=== PATIENT | male | born 1960 | race Hispanic/Latino ===

== ENCOUNTER 2016-05-06 06:36 | Day surgery (SDC) | payer BC ==
[2016-04-28 17:28] VITALS: BMI 29.2
[2016-05-06 07:07] LABS: ADD MANUAL DIFF? NO
[2016-05-06 07:22] LABS: BASO # 0.02 K/mm3 (0.0-2.0); BASO % 0.4 % (0.0-3.0); BLOOD UREA NITROGEN 13 mg/dL (7-21); CALCIUM 9.4 mg/dL (8.4-10.5); CARBON DIOXIDE 31 mmol/L (21-33); CHLORIDE 101 mmol/L (98-107); EOS # 0.1 (0.0-0.7); EOS % 1.5 % (1.5-5.0); GFR AFRICAN-AMERICAN > 60; GLUCOSE,RANDOM 91 mg/dL (70-110); GRAN # 3.25 (1.4-6.5); GRAN % 60.4 % (50.0-68.0); HEMATOCRIT 43.3 % (42.0-52.0); LYMPH # 1.7 (1.2-3.4); LYMPH % 31.2 % (22.0-35.0); MEAN CELL VOLUME 93.5 fL (80.0-105.0); MEAN CORPUSCULAR HEMOGLOBIN 32.4 pg (25.0-35.0); MEAN CORPUSCULAR HGB CONC 34.6 g/dl (31.0-37.0); MEAN PLATELET VOLUME 10.9 fl (7.0-11.0); MONO # 0.4 (0.1-0.6); MONO % 6.5 % (1.0-6.0); PLATELET COUNT 173 10^3/uL (120.0-450.0); POTASSIUM 4.5 mmol/L (3.6-5.0); RED CELL DISTRIBUTION WIDTH 12.8 % (11.5-14.5); SODIUM 142 mmol/L (132-148); WHITE BLOOD COUNT 5.4 10^3/ul (4.5-11.0)
[2016-05-06 07:24] LABS: INR 1.06 (0.93-1.08); PARTIAL THROMBOPLASTIN TIME 27.3 Seconds (23.7-30.8)
[2016-05-06] MEDS ORDERED: Lidocaine 2% Inj (20ml) ONE (08:11)
[2016-05-06] MEDS ORDERED: Midazolam 2 MG/2 ML VIAL ONE ×2 (08:11→08:30)
[2016-05-06] MEDS ORDERED: Iodixanol 320 MG/ML 200 ML BOTTLE IV ONE (08:13)
[2016-05-06] MEDS ORDERED: Iohexol 350mgl/ml 50 ML ONE (08:13)
[2016-05-06] MEDS ORDERED: Nitroglycerin 50mg in D5W 0 ML IV ONE (08:13)
[2016-05-06] MEDS ORDERED: Iodixanol 320 MG/ML 100 ML BOTTLE IV ONE (08:13)
[2016-05-06] MEDS ORDERED: Sodium Chloride 0.9% 1,000 ML IV SCH (09:15)
[2016-05-06 10:01] VITALS: TEMP 97
--- NOTE | 2016-05-06 10:29 | CARDCATH ---
PROCEDURE DATE: 05/06/2016 HISTORY: The patient is a 56-year-old male with a history of anterior wall myocardial infarction in the past who presents with chest pain as well as an abnormal stress test. Because of this, cardiac c atheterization is recommended. PROCEDURE: Left heart catheterization with coronary angiography and left ventriculogram. The right femoral artery was cannulated with a 6-Tamazight sheath. There were no complications. The findings on catheterization revealed a left ventricle that was minimally hypokinetic. Estimated ejection fraction is 50%. His coronary anatomy revealed a right dominant circulation. The RCA revealed diffuse atherosclerosis with a patent stent in the posterolateral branch, but was fr ee of significant disease. His left main artery was unremarkable. The LAD revealed diffuse atherosclerosis throughout its course. The proximal LAD revealed a patent stent. The mid LAD revealed a patent stent. The mid to distal portion of the LAD was diffusely diseased with multiple 50-60% lesions throughout i ts course. The diagonal vessel was unremarkable. The circumflex artery and obtuse marginal branches were free of significant disease. Manual compression was used to close the femoral artery site. The patient tolerated the procedure well. In summary, the procedure revealed patent stents in the proximal LAD and mid LAD as well as the poste rolateral branch of the RCA. There was diffuse atherosclerosis in the mid to distal LAD with multiple 50% lesions throughout its c ourse. LV function was minimally hypokinetic with an EF of 50%. Given these findings, the patient's cardiac status is doing well since his multivessel PTCA and his a cute anterior wall myocardial infarction. The patient's cardiac risk reduction program is intact and the patient is doing well. I have discussed this with the patient in detail. He will continue his medications at home. Aguilar Manjarrez MD cc: [phone] TT: 05/06/2016 10:28:53 an
[2016-05-06 12:16] VITALS: O2SAT 100
[2016-05-06 12:18] VITALS: RESP 18
[2016-05-06 13:10] VITALS: BP 128/74; PULSE 56
--- NOTE | 2016-05-06 20:00 | CARD ---
APPROVED REPORT EKG Measurement Heart [id number] [id number] <Conclusion> Normal sinus rhythm Normal ECG
== END 2016-05-06 15:10 | disposition home or self-care (01) ==
LOC: CATH 06:36
PROVIDERS: ATTEND Internal Medicine Cardiovascular Disease
DX: I25.10 Atherosclerotic heart disease of native coronary artery without angina pectoris (principal); I25.2 Old myocardial infarction; R94.39 Abnormal result of other cardiovascular function study
CPT/HCPCS: 36415; 80048; 85025; 85610; 85730; 86850; 86900; 93005; 93458; 99152; C1769; C2629; J1644; J2250; J3010; J7040 ×2; Q9967

== ENCOUNTER 2017-01-23 07:06 | Emergency (ER) | payer BC ==
[2017-01-23 07:17] VITALS: BMI 28.3
[2017-01-23 07:21] VITALS: RESP 18; TEMP 98.7
[2017-01-23] MEDS ORDERED: Silver Nitrate Topical - Stick TOP ONE (07:37)
--- NOTE | 2017-01-23 07:43 | ED PDOC ---
Arrival/HPI - General Chief Complaint: Abnormal Skin Integrity Time Seen by Provider: 01/23/17 07:17 Historian: Patient - History of Present Illness Narrative History of Present Illness (Text): 01/23/17 07:25 57 year old male, whose past medical history includes CAD with three stents ( maintained on plavix), who presents complaining of a cut on the left foot that occurred last night. Patient reports he was clipping his toe nails when he clipped improperly on the fourth toe lateral side. He states the bleeding stopped last night, but began to start up when he was sleeping. Patient denies any fever, chills, chest pain, shortness of breath, nausea, vomiting, diarrhea, urinary symptoms, back pain, neck pain, headache, dizziness, or any other complaints/injuries. PMD: Dr. Lynne Symptom Onset: Gradual Symptom Course: Unchanged Activities at Onset: Light Context: Home Past Medical History - Provider Review Nursing Documentation Reviewed: Yes - Infectious Disease Hx of Infectious Diseases: None - Tetanus Immunization Tetanus Immunization: Unknown - Past Medical History Past Medical History: No Previous - Cardiac Other/Comment: 3 cardiac stent - Hematological/Oncological Hx Blood Transfusions: No - Musculoskeletal/Rheumatological Hx Musculoskeletal Disorders: No - Psychiatric Hx Substance Use: No - Past Surgical History Past Surgical History: No Previous - Surgical History Other/Comment: pt fell during his childhood days and fracture the bridge of his nose and eventually had surgery to remove the bump. Cardiac Stent x 3 - Anesthesia Hx Anesthesia Reactions: No Hx Malignant Hyperthermia: No - Suicidal Assessment Feels Threatened In Home Enviroment: No Family/Social History - Physician Review Nursing Documentation Reviewed: Yes Family/Social History: No Known Family HX Smoking Status: Never Smoked Hx Alcohol Use: No Hx Substance Use: No Hx Substance Use Treatment: No Allergies/Home Meds Allergies/Adverse Reactions: Allergies No Known Allergies Allergy (Verified 04/28/16 17:28) Home Medications: Home Meds Medication Instructions Recorded Confirmed Atorvastatin Calcium [Lipitor] 20 mg PO DAILY 05/04/16 05/06/16 Review of Systems - Physician Review All systems were reviewed & negative as marked: Yes - Review of Systems Constitutional: absent: Fevers, Other (Chills) Respiratory: absent: SOB Cardiovascular: absent: Chest Pain Gastrointestinal: absent: Diarrhea, Nausea, Vomiting Musculoskeletal: absent: Back Pain, Neck Pain Skin: Other (cut on the left fourth toe) Neurological: absent: Headache, Dizziness Physical Exam Vital Signs Reviewed: Yes Vital Signs Temp Pulse Resp BP Pulse Ox 01/23/17 07:07 98.7 F 49 L 18 145/82 99 Temperature: Afebrile Pulse: Bradycardic Respiratory Rate: Normal Appearance: Positive for: Well-Appearing, Non-Toxic, Comfortable Pain Distress: None Mental Status: Positive for: Alert and Oriented X 3 - Systems Exam Head: Present: Atraumatic, Normocephalic Pupils: Present: PERRL Extroacular Muscles: Present: EOMI Conjunctiva: Present: Normal Mouth: Present: Moist Mucous Membranes Neck: Present: Normal Range of Motion Respiratory/Chest: Present: Clear to Auscultation, Good Air Exchange. No: Respiratory Distress, Accessory Muscle Use Cardiovascular: Present: Regular Rate and Rhythm, Normal S1, S2. No: Murmurs Abdomen: Present: Normal Bowel Sounds. No: Tenderness, Distention, Peritoneal Signs Back: Present: Normal Inspection Upper Extremity: Present: Normal Inspection. No: Cyanosis, Edema Lower Extremity: Present: Normal Inspection, Other ((+) Bleeding on the left lateral side toe nail of the fouth toe. (-) Pus (-) no warmth ). No: Edema, Swelling, Erythema Neurological: Present: GCS=15, CN II-XII Intact, Speech Normal Skin: Present: Warm, Dry, Normal Color. No: Rashes Psychiatric: Present: Alert, Oriented x 3, Normal Insight, Normal Concentration Medical Decision Making ED Course and Treatment: 01/23/17 07:25 Impression: 57 year old male presents complaining of bleeding from a clip on the left fourth toe laterally. Plan: -- Silver Nitrate Tropical Stick -- Reassess and disposition Prior Visits: Notes and results from previous visits were reviewed. Patient was last seen in the emergency department on 05/01/16 persents complaining of his heart racing. Patient was discharged. Progress Notes: 01/23/17 07:50 PROCEDURE: WOUND CARE Performed by [facility] Di[facility] Dr. Flores Consent: Informed consent, after discussion of the risks, benefits, and alternatives to the procedure was obtained. Timeout: A timeout to verify the correct patient, procedure, and site was performed. Indication: Bleeding Procedure Site: Third and fourth digit left foot Length: 2mm Preparation: Topical silveral Nitrate was placed. The wound was cleaned with NS and Betadyne. The area was prepped and draped in the usual sterile fashion. Procedure: The site was dressed with clean, dry, sterile dressing. Post-procedure: Good closure and hemostasis. The patient tolerated the procedure well and there were no complications. CSM remains intact. 01/23/17 08:50 Patient wound reevaluated and there is no bleeding. Patient has a PMD he will f/ u with and I recommended Dr. Dow for Podiatry follow up. He was advised to make sure to follow up with podiatry and PMD. He was advised not to wet wound for at least 48 hours and return to the ED if symptoms worsen or any other concern. - Medication Orders Current Medication Orders: Discontinued Medications Silver Nitrate (Silver Nitrate Topical Stick) 1 swa TOP ONCE ONE Stop: 01/23/17 07:38 Last Admin: 01/23/17 08:47 Dose: 1 swa Tetanus/Reduced Diphtheria/Acell Pertussis (Boostrix Vaccine Inj) 0.5 ml IM .ONCE ONE Stop: 01/23/17 08:01 Last Admin: 01/23/17 08:46 Dose: 0.5 ml MAR Immunization Data Document 01/23/17 08:46 SRE (Rec: 01/23/17 08:46 SRE [id number]) Immunization Data Vaccine Information Sheet Given No Immunization Registry Document 01/23/17 08:46 SRE (Rec: 01/23/17 08:46 SRE [id number]) Immunization Registry Consent Date 01/23/17 - Scribe Statement The provider has reviewed the documentation as recorded by the Tayler aGnn Provider Scribe Attestation: All medical record entries made by the Tayler were at my direction and personally dictated by me. I have reviewed the chart and agree that the record accurately reflects my personal performance of the history, physical exam, medical decision making, and the department course for this patient. I have also personally directed, reviewed, and agree with the discharge instructions and disposition. Disposition/Present on Arrival - Present on Arrival Any Indicators Present on Arrival: No History of DVT/PE: No History of Uncontrolled Diabetes: No Urinary Catheter: No History of Decub. Ulcer: No - Disposition Have Diagnosis and Disposition been Completed?: Yes Diagnosis: Toe injury Disposition: HOME/ ROUTINE Disposition Time: 08:52 Patient Plan: Observation Patient Problems: Current Active Problems Problem Status Onset Toe injury Acute Condition: IMPROVED Discharge Instructions (ExitCare): Nita (ED) Additional Instructions: Mr Tse, thank you for letting us take care of you today. Your provider was Dr. Shay. You were treated for Toe Injury. The emergency medical care you received today was directed at your acute symptoms. If you were prescribed any medication, please fill it and take as directed. It may take several days for your symptoms to resolve. Return to the Emergency Department if your symptoms worsen, do not improve, or if you have any other problems. Please contact your doctor or call one of the physicians/clinics you have been referred to that are listed on the Patient Visit Information form that is included in your discharge packet. Bring any paperwork you were given at discharge with you along with any medications you are taking to your follow up visit. Our treatment cannot replace ongoing medical care by a primary care provider (PCP) outside of the emergency department. Thank you for allowing the [facility] team to be part of your care today. If you had an X-Ray or CT scan: A Radiologist will review the ED reading if any change in treatment is needed we will contact you. If you had a blood, urine, or wound culture: It will take several days for the results, if any change in treatment is needed we will contact you. If you had an STI test: It will take 48 hours for the results. Please call after 1 week if you have not heard back. Referrals: Jose A Rodrigues MD [Primary Care Provider] - Follow up with primary Anjelica Dow DPM [Staff Provider] - Follow up with primary Forms: [employer] (Togolese), WORK NOTE
[2017-01-23] MEDS ORDERED: TDAP Vaccine 0.5 mL Syr IM ONE (08:00)
[2017-01-23 08:58] VITALS: BP 131/74; PULSE 43; O2SAT 96
== END 2017-01-23 09:01 | disposition home or self-care (01) ==
LOC: ED 07:06
DX: S99.922A Unspecified injury of left foot, initial encounter (principal); W45.8XXA Other foreign body or object entering through skin, initial encounter; Y93.E8 Activity, other personal hygiene; Y92.009 Unspecified place in unspecified non-institutional (private) residence as the place of occurrence of the external cause; Z23 Encounter for immunization

== ENCOUNTER 2017-05-20 10:44 | Emergency (ER) | payer BC ==
[2017-05-20 11:00] VITALS: TEMP 98.7
[2017-05-20 11:05] VITALS: BMI 28.1
--- NOTE | 2017-05-20 11:24 | ED PDOC ---
Arrival/HPI - General Chief Complaint: Shortness Of Breath Time Seen by Provider: 05/20/17 11:06 Historian: Patient - History of Present Illness Narrative History of Present Illness (Text): 05/20/17 11:10 A 57 year old male, whose past medical history includes 3 cardiac stents placed by Dr. Manjarrez, presents to the emergency department complaining of shortness of breath. Patient reports today after exercising at the gym, patient was walking around the gym and began experiencing shortness of breath. Patient denies any fever, chills, cough, chest pain, bilateral leg swelling/pain/cramps, or any other complaints at this time. Denies any recent travel. PMD: Dr. Rodrigues Mba Internship: Dr. Manjarrez Past Medical History - Provider Review Nursing Documentation Reviewed: Yes - Infectious Disease Hx of Infectious Diseases: None - Tetanus Immunization Tetanus Immunization: Unknown - Past Medical History Past Medical History: No Previous - Cardiac Hx Cardiac Disorders: Yes Hx VT: Yes Hx Hypertension: Yes Other/Comment: 3 cardiac stent - Hematological/Oncological Hx Blood Transfusions: No - Musculoskeletal/Rheumatological Hx Musculoskeletal Disorders: No - Psychiatric Hx Emotional Abuse: No Hx Physical Abuse: No Hx Substance Use: No - Past Surgical History Past Surgical History: No Previous - Surgical History Hx Coronary Stent: Yes (x3) Other/Comment: pt fell during his childhood days and fracture the bridge of his nose and eventually had surgery to remove the bump. Cardiac Stent x 3 - Anesthesia Hx Anesthesia: Yes Hx Anesthesia Reactions: No Hx Malignant Hyperthermia: No - Suicidal Assessment Feels Threatened In Home Enviroment: No Family/Social History - Physician Review Nursing Documentation Reviewed: Yes Family/Social History: No Known Family HX Smoking Status: Never Smoked Hx Alcohol Use: No Hx Substance Use: No Hx Substance Use Treatment: No Allergies/Home Meds Allergies/Adverse Reactions: Allergies No Known Allergies Allergy (Verified 05/20/17 11:10) Home Medications: Home Meds Medication Instructions Recorded Confirmed Atorvastatin Calcium [Lipitor] 20 mg PO DAILY 05/04/16 05/20/17 Review of Systems - Physician Review All systems were reviewed & negative as marked: Yes - Review of Systems Constitutional: absent: Fevers, Night Sweats Respiratory: SOB. absent: Cough Cardiovascular: absent: Chest Pain, Palpitations Musculoskeletal: absent: Other (no (bilateral) leg swelling/pain/cramps) Physical Exam Vital Signs Reviewed: Yes Vital Signs Temp Pulse Resp BP Pulse Ox 05/20/17 13:44 52 L 16 117/70 97 05/20/17 13:11 57 L 18 99/55 L 98 05/20/17 11:04 18 05/20/17 10:54 98.7 F 48 L 12 133/71 99 Temperature: Afebrile Blood Pressure: Normal Pulse: Regular Respiratory Rate: Normal Appearance: Positive for: Well-Appearing Pain Distress: None Mental Status: Positive for: Alert and Oriented X 3 - Systems Exam Head: Present: Atraumatic, Normocephalic Pupils: Present: PERRL Extroacular Muscles: Present: EOMI Conjunctiva: Present: Normal Mouth: Present: Moist Mucous Membranes Neck: Present: Normal Range of Motion Respiratory/Chest: Present: Clear to Auscultation, Good Air Exchange. No: Respiratory Distress, Accessory Muscle Use Cardiovascular: Present: Regular Rate and Rhythm, Normal S1, S2. No: Murmurs Abdomen: No: Tenderness, Distention, Peritoneal Signs Back: Present: Normal Inspection Upper Extremity: Present: Normal Inspection. No: Cyanosis, Edema Lower Extremity: Present: Normal Inspection. No: Edema Neurological: Present: GCS=15, CN II-XII Intact, Speech Normal Skin: Present: Warm, Dry, Normal Color. No: Rashes Psychiatric: Present: Alert, Oriented x 3, Normal Insight, Normal Concentration Medical Decision Making ED Course and Treatment: 05/20/17 11:15 Impression: 57 year old male with shortness of breath. No acute findings on physical examination; lungs clear. Differential Diagnosis included but are not limited to: ACS vs. Exhaustion from exercising. Plan: -- EKG -- Chest X-ray -- Labs -- Venous Blood Gas -- Reassess and disposition Progress Notes: EKG: Ordered, reviewed, and independently interpreted the EKG. Rate : 56 BPM Rhythm : Sinus bradycardia. Interpretation : No ST-segment elevations or depressions, no T-wave inversions, normal intervals. Comparison : No change EKG from comparison on 05/06/2016. 05/20/2017 11:40 Chest X-ray IMPRESSION: No active disease. Dictator: Randy Pan MD 05/20/17 13:50 Patient did not have shortness of breathe, chest pain or back pain throughput his ED stay. Patient and were given results of the labs, EKG, and CXR. They were advised to make sure to follow up with [facility] and Dr. Manjarrez in 1-2days. They were advised to return to the ED if symptoms persist, worsen or any other concern. - Lab Interpretations Lab Results: 05/20/17 12:10 05/20/17 12:10 Lab Results 05/20/17 12:10: Sodium 143, Chloride 102, Potassium 4.9, Carbon Dioxide 31, Anion Gap 15, BUN 16, Creatinine 0.9, Est GFR ( Amer) > 60, Est GFR (Non- Af Amer) > 60, Random Glucose 90, Calcium 10.2, Lactate Dehydrogenase 524, Total Creatine Kinase 201, Troponin I < 0.01, NT-Pro-B Natriuret Pep 97.3 05/20/17 12:10: pO2 34, VBG pH 7.38, VBG pCO2 57.0, VBG HCO3 33.7 H, VBG Total CO2 35.4 H, VBG O2 Sat (Calc) 71.8 H, VBG Base Excess 6.8 H, VBG Potassium 4.9, Sodium 138.0, Chloride 104.0, Glucose 88, Lactate 0.8, FiO2 21.0, Venous Blood Potassium 4.9 05/20/17 12:10: WBC 7.0 D, RBC 4.46, Hgb 14.4, Hct 42.2, MCV 94.6, MCH 32.3, MCHC 34.1, RDW 13.3, Plt Count 179, MPV 10.5, Gran % 72.7 H, Lymph % (Auto) 18.9 L, Davie % (Auto) 5.9, Eos % (Auto) 2.1, Baso % (Auto) 0.4, Gran # 5.08, Lymph # (Auto) 1.3, Davie # (Auto) 0.4, Eos # (Auto) 0.2, Baso # (Auto) 0.03 I have reviewed the lab results: Yes - RAD Interpretation Radiology Orders: 05/20/17 11:22 CHEST PORTABLE [RAD] Stat - Scribe Statement The provider has reviewed the documentation as recorded by the Divyaibsegundo Gutierrez Provider Scribe Attestation: All medical record entries made by the Scribe were at my direction and personally dictated by me. I have reviewed the chart and agree that the record accurately reflects my personal performance of the history, physical exam, medical decision making, and the department course for this patient. I have also personally directed, reviewed, and agree with the discharge instructions and disposition. Disposition/Present on Arrival - Present on Arrival Any Indicators Present on Arrival: No History of DVT/PE: No History of Uncontrolled Diabetes: No Urinary Catheter: No History of Decub. Ulcer: No History Surgical Site Infection Following: None - Disposition Have Diagnosis and Disposition been Completed?: Yes Diagnosis: Shortness of breath Disposition: HOME/ ROUTINE Disposition Time: 13:50 Patient Plan: Discharge Condition: IMPROVED Discharge Instructions (ExitCare): Shortness of Breath (Dyspnea) Additional Instructions: Ms Tse, thank you for letting us take care of you today. Your provider was Dr. Shay. You were treated for Shortness of breathe. The emergency medical care you received today was directed at your acute symptoms. If you were prescribed any medication, please fill it and take as directed. It may take several days for your symptoms to resolve. Return to the Emergency Department if your symptoms worsen, do not improve, or if you have any other problems. Please contact your doctor or call one of the physicians/clinics you have been referred to that are listed on the Patient Visit Information form that is included in your discharge packet. Bring any paperwork you were given at discharge with you along with any medications you are taking to your follow up visit. Our treatment cannot replace ongoing medical care by a primary care provider (PCP) outside of the emergency department. Thank you for allowing the [facility] team to be part of your care today. If you had an X-Ray or CT scan: A Radiologist will review the ED reading if any change in treatment is needed we will contact you. If you had a blood, urine, or wound culture: It will take several days for the results, if any change in treatment is needed we will contact you. If you had an STI test: It will take 48 hours for the results. Please call after 1 week if you have not heard back. Referrals: Jose A Rodrigues MD [Primary Care Provider] - Follow up with primary Aguilar Manjarrez MD [Staff Provider] - Follow up with primary Forms: [employer] (Yoruba), WORK NOTE
--- NOTE | 2017-05-20 11:42 | RAD ---
HISTORY: sob COMPARISON: 04/28/2016 FINDINGS: LUNGS: No active pulmonary disease. PLEURA: No significant pleural effusion identified, no pneumothorax apparent. CARDIOVASCULAR: Normal. OSSEOUS STRUCTURES: No significant abnormalities. VISUALIZED UPPER ABDOMEN: Normal. OTHER FINDINGS: None. IMPRESSION: No active disease.
[2017-05-20 12:19] LABS: VENOUS BLOOD GAS BASE EXCESS 6.8 mmol/L (0.0-2.0); VENOUS BLOOD GAS PO2 34 mm/Hg (30-55); VENOUS BLOOD PH 7.38 (7.32-7.43)
[2017-05-20 12:20] LABS: BASO # 0.03 K/mm3 (0.0-2.0); BASO % 0.4 % (0.0-3.0); EOS # 0.2 (0.0-0.7); EOS % 2.1 % (1.5-5.0); GRAN # 5.08 (1.4-6.5); GRAN % 72.7 % (50.0-68.0); HEMOGLOBIN 14.4 g/dL (14.0-18.0); LYMPH # 1.3 (1.2-3.4); LYMPH % 18.9 % (22.0-35.0); MEAN CELL VOLUME 94.6 fl (80.0-105.0); MEAN CORPUSCULAR HEMOGLOBIN 32.3 pg (25.0-35.0); MEAN CORPUSCULAR HGB CONC 34.1 g/dl (31.0-37.0); MEAN PLATELET VOLUME 10.5 fl (7.0-11.0); MONO # 0.4 (0.1-0.6); MONO % 5.9 % (1.0-6.0); RBC 4.46 10^6/uL (3.5-6.1); RED CELL DISTRIBUTION WIDTH 13.3 % (11.5-14.5)
[2017-05-20 12:30] LABS: BLOOD UREA NITROGEN 16 mg/dL (7-21); CALCIUM 10.2 mg/dL (8.4-10.5); GFR AFRICAN-AMERICAN > 60; GFR NON-AFRICAN AMERICAN > 60
[2017-05-20 12:43] LABS: B-TYPE NATRIURETIC PEPTIDE 97.3 pg/mL (0-450); TROPONIN I < 0.01 ng/mL
[2017-05-20 13:44] VITALS: BP 117/70; PULSE 52; RESP 16; O2SAT 97
--- NOTE | 2017-05-20 19:14 | CARD ---
APPROVED REPORT EKG Measurement Heart [id number] IN [id number] <Conclusion> Sinus bradycardia Otherwise normal ECG
== END 2017-05-20 13:58 | disposition home or self-care (01) ==
LOC: ED 10:44
DX: R06.02 Shortness of breath (principal); I25.2 Old myocardial infarction; I10 Essential (primary) hypertension; Z95.5 Presence of coronary angioplasty implant and graft